=== PATIENT | female | born 1970 ===

== ENCOUNTER 2021-12-17 10:44 | Emergency (ER) | payer SELFPAY ==
[2021-12-17 11:31] LABS: Basophils % (Auto) 0.2 % (0.0-1.8); Eosinophils # (Auto) 0.1 K/mm3 (0.0-0.4); Eosinophils % (Auto) 0.8 % (0.0-4.3); Hematocrit 39.5 % (30.3-42.9); Hemoglobin 13.6 gm/dl (10.1-14.3); Lymphocytes # (Auto) 2.8 K/mm3 (1.2-5.4); Lymphocytes % (Auto) 17.7 % (13.4-35.0); Mean Corpuscular HGB Conc 34 % (30-34); Mean Corpuscular Volume 89 fl (79-97); Monocytes # (Auto) 0.3 K/mm3 (0.0-0.8); Monocytes % (Auto) 2.1 % (0.0-7.3); Platelet Count 192 K/mm3 (140-440); Red Blood Count 4.42 M/mm3 (3.65-5.03); Red Cell Distribution Width 13.3 % (13.2-15.2)
[2021-12-17 11:44] LABS: INR 0.98 (0.87-1.13)
--- NOTE | 2021-12-17 11:44 | XRay Report ---
CHEST 1 VIEW 12/17/2021 11:17 AM INDICATION / CLINICAL INFORMATION: ams, resp depression, chest pain. COMPARISON: None available. FINDINGS: SUPPORT DEVICES: None. HEART / MEDIASTINUM: No significant abnormality. LUNGS / PLEURA: No significant pulmonary or pleural abnormality. No pneumothorax. ADDITIONAL FINDINGS: No significant additional findings. IMPRESSION: 1. No acute findings. Signer Name: Richi Pena MD Signed: 12/17/2021 11:40 AM Workstation Name: [email or web address]
[2021-12-17 11:50] LABS: Partial Thromboplastin Time 30.1 Sec. (24.2-36.6)
[2021-12-17 11:56] LABS: Alanine Aminotransferase 51 units/L (7-56); Albumin 4.7 g/dL (3.9-5); BUN/Creatinine Ratio 12; Blood Urea Nitrogen 13 mg/dL (7-17); Calcium 9.4 mg/dL (8.4-10.2); Hemolysis Index 8
[2021-12-17 12:05] LABS: Free T4 (Free Thyroxine) 1.33 ng/dL (0.76-1.46)
[2021-12-17] MEDS ORDERED: SODIUM CHLORIDE 0.9% 1000 ML 1,000 ML IV ONE (12:49)
--- NOTE | 2021-12-17 12:58 | Cat Scan Report ---
CT head/brain wo con INDICATION / CLINICAL INFORMATION: 51 years Female; ams, resp depression, headache. TECHNIQUE: Routine CT head without contrast. All CT scans at this location are performed using CT dos e reduction for ALARA by means of automated exposure control. COMPARISON: None. FINDINGS: BRAIN / INTRACRANIAL CONTENTS: The brain parenchyma appears to demonstrate appropriate attenuation fo r age. The ventricular system is within normal limits in size and configuration. There is no CT evide nce of acute intracranial hemorrhage or significant mass effect. ORBITS: No significant abnormality of visualized orbits. SINUSES / MASTOIDS: No significant abnormality in the visualized paranasal sinuses or mastoid air robert ls. CRANIOCERVICAL JUNCTION: No significant abnormality. ADDITIONAL FINDINGS: None. IMPRESSION: 1. There is no CT evidence of acute intracranial process. Signer Name: Jad Lilly MD Signed: 12/17/2021 12:54 PM Workstation Name: [id number]
--- NOTE | 2021-12-17 13:03 | Emergency Department Report ---
<DOROTHY BIRD - Last Filed: 12/17/21 16:41> ED Altered Mental Status HPI - General Chief Complaint: Altered Mental Status Stated Complaint: OVERDOSE Time Seen by Provider: 12/17/21 10:57 - Related Data Previous Rx's Medication Instructions Recorded Last Taken Type Nitrofurantoin [place]/M-Cryst 100 mg PO Q12HR 5 Days #10 capsule 12/17/21 Unknown Rx [Macrobid CAP] diphenhydrAMINE [Benadryl CAP] 25 mg PO Q6HR PRN 5 Days #12 12/17/21 Unknown Rx capsule Allergies Allergy/AdvReac Type Severity Reaction Status Date / Time No Known Allergies Allergy Unverified 12/17/21 12:33 ED Past Medical Hx - Medications Home Medications: Home Medications Medication Instructions Recorded Confirmed Last Taken Type Nitrofurantoin [place]/M-Cryst 100 mg PO Q12HR 5 Days #10 capsule 12/17/21 Unknown Rx [Macrobid CAP] diphenhydrAMINE [Benadryl CAP] 25 mg PO Q6HR PRN 5 Days #12 12/17/21 Unknown Rx capsule ED Course - Reevaluation(s) Reevaluation #1: 12/17/21 16:37 I have seen the patient myself and patient AOX4 states she accidentally took Clonidine instead of aspirin. Patient currently denies any other discomfort but only that she may have an allergic reaction as she is having right facial itchy and would like to get some Benadryl. Review of labs shows patient have urinary tract infection; therefore, I will go ahead and treat it. Informed to follow up with PCP within 3 days. Return to ER if any new symptoms or previous symptom returns. 12/17/21 16:41 - Lab Data Result diagrams: 12/17/21 11:04 12/17/21 11:04 ED Disposition Clinical Impression: Accidental overdose, Respiratory depression, Hyperglycemia, Medication side effect Disposition: 01 HOME / SELF CARE / HOMELESS Is pt being admited?: No Does the pt Need Aspirin: No Condition: Stable Instructions: Accidental Drug Poisoning, Adult, Hyperglycemia, [id number] Additional Instructions: Take the medication as prescribed. Follow-up with your doctor or doctor/clinic provided. Return if symptoms worsen as indicated by your discharge instructions. Your blood pressure is normal during your ER stay here. It is unclear if you did take a blood pressure medication prior to arrival. I suggest that you follow-up with your primary care doctor to have your blood pressure and blood song gar checked and to determine if you need medications for high blood pressure and diabetes Prescriptions: diphenhydrAMINE [Benadryl CAP] 25 mg PO Q6HR PRN 5 Days #12 capsule PRN Reason: Itching Nitrofurantoin [place]/M-Cryst [Macrobid CAP] 100 mg PO Q12HR 5 Days #10 capsule Referrals: [facility] [Provider Group] - 3-5 Days BABITA PARR MD [Staff Physician] - 3-5 Days Forms: Work/School Release Form(ED) Time of Disposition: 16:41 <ARYA ANGLIN - Last Filed: 12/18/21 12:03> ED Altered Mental Status HPI - General Source: EMS Mode of arrival: Ambulatory Limitations: Altered Mental Status - History of Present Illness Initial Comments: 51-year-old female past medical history of hypertension (no meds at this time) presents to the hospital with alteration in mental status and respiratory arr est. She was at work and coworkers states she laid her head on a desk and they could not wake her up. Fire department responders found her slumped over in her chair with depressed respirations. She apparently had a period of apnea requiring bagging in 2 minutes of chest compressions were provided because the fire department had difficulty palpating a pulse. No shock advised by the AED. Upon EMS arrival patient was in sinus rhythm with respirations of 6/min. She received Narcan with improvement in mental status. Patient is alert but drowsy. She reports she is had headaches since at least July. She took what she thought was am aspirin for headache but in hindsight things that she took her mother's clonidine instead. She then took a half of Percocet 10 mg for her right knee pain. Patient has been experiencing anterior right knee pain for the last several days performs lifting and squatting at her job (she denies fall). EMS reports a glucose of 396 with no previous history of diabetes. Patient states she has been on hydrochlorothiazide in the past and has not recently been checking her blood pressure. ED Review of Systems ROS: Stated complaint: OVERDOSE Other details as noted in HPI Comment: All other systems reviewed and negative ED Past Medical Hx - Past Medical History Hx Diabetes: Yes - Social History Smoking Status: Unknown if ever smoked ED Physical Exam - General Limitations: Altered Mental Status - Other Other exam information: General: No acute distress Head: Atraumatic Eyes: normal appearance ENT: Moist mucous membranes Neck: Normal appearance, no midline tenderness Chest: Clear to auscultation bilaterally CV: Regular rate and rhythm Abdomen: Soft, normal bowel sounds, nontender, nondistended, no rebound or guarding Back: Normal inspection Extremity: Normal inspection, full range of motion Neuro: Drowsy, oriented x3 no facial asymmetry, speech clear, no gross motor se nsory deficit Psych: Appropriate behavior Skin: No rash ED Course Vital Signs 12/17/21 12/17/21 12/17/21 10:44 12:02 12:03 Temperature 98.9 F Pulse Rate 87 89 Respiratory 18 16 17 Rate Blood Pressure 122/78 122/78 Blood Pressure [Right] O2 Sat by Pulse 96 94 93 Oximetry 12/17/21 12/17/21 12/17/21 12:05 12:57 12:59 Temperature Pulse Rate 86 73 71 Respiratory 14 16 12 Rate Blood Pressure 122/78 130/89 130/89 Blood Pressure [Right] O2 Sat by Pulse 96 98 95 Oximetry 12/17/21 12/17/21 12/17/21 13:01 13:03 13:05 Temperature Pulse Rate 71 70 73 Respiratory 10 L 12 13 Rate Blood Pressure 130/89 122/78 122/78 Blood Pressure [Right] O2 Sat by Pulse 97 98 98 Oximetry 12/17/21 12/17/21 12/17/21 13:09 13:11 13:13 Temperature Pulse Rate 76 72 68 Respiratory 15 12 13 Rate Blood Pressure 122/78 122/78 122/78 Blood Pressure [Right] O2 Sat by Pulse 94 97 93 Oximetry 12/17/21 12/17/21 12/17/21 13:15 13:17 13:19 Temperature Pulse Rate 71 72 75 Respiratory 14 14 13 Rate Blood Pressure 122/78 122/78 122/78 Blood Pressure [Right] O2 Sat by Pulse 94 96 97 Oximetry 12/17/21 12/17/21 12/17/21 13:21 13:23 13:25 Temperature Pulse Rate 72 71 69 Respiratory 13 13 13 Rate Blood Pressure 122/78 122/78 122/78 Blood Pressure [Right] O2 Sat by Pulse 96 95 94 Oximetry 12/17/21 12/17/2122 13:27 13:29 13:31 Temperature Pulse Rate 69 70 75 Respiratory 13 12 17 Rate Blood Pressure 122/78 122/78 122/78 Blood Pressure [Right] O2 Sat by Pulse 98 93 92 Oximetry 12/17/21 12/17/21 12/17/21 13:33 13:35 13:37 Temperature Pulse Rate 70 76 74 Respiratory 12 14 14 Rate Blood Pressure 122/78 122/78 122/78 Blood Pressure [Right] O2 Sat by Pulse 92 97 99 Oximetry 12/17/21 12/17/21 12/17/21 13:39 13:41 13:43 Temperature Pulse Rate 79 78 79 Respiratory 13 17 14 Rate Blood Pressure 122/78 122/78 122/78 Blood Pressure [Right] O2 Sat by Pulse 97 97 100 Oximetry 12/17/21 12/17/21 12/17/21 13:45 13:47 13:49 Temperature Pulse Rate 72 68 78 Respiratory 13 17 14 Rate Blood Pressure 122/78 122/78 122/78 Blood Pressure [Right] O2 Sat by Pulse 98 99 97 Oximetry 12/17/21 12/17/21 12/17/21 13:51 13:53 13:55 Temperature Pulse Rate 69 67 65 Respiratory 10 L 11 L 15 Rate Blood Pressure 122/78 130/83 130/83 Blood Pressure [Right] O2 Sat by Pulse 98 99 97 Oximetry 12/17/21 12/17/21 12/17/21 13:57 13:59 14:01 Temperature Pulse Rate 60 61 62 Respiratory 12 13 15 Rate Blood Pressure 130/83 130/83 130/83 Blood Pressure [Right] O2 Sat by Pulse 96 98 98 Oximetry 12/17/21 12/17/21 12/17/21 14:03 14:05 14:07 Temperature Pulse Rate 69 96 H 72 Respiratory 13 10 L 16 Rate Blood Pressure 130/83 130/83 130/83 Blood Pressure [Right] O2 Sat by Pulse 98 97 92 Oximetry 12/17/21 12/17/21 12/17/21 14:09 14:11 14:13 Temperature Pulse Rate 73 68 63 Respiratory 16 15 12 Rate Blood Pressure 130/83 130/83 130/83 Blood Pressure [Right] O2 Sat by Pulse 93 95 96 Oximetry 12/17/21 12/17/21 12/17/21 14:15 14:17 14:19 Temperature Pulse Rate 66 68 71 Respiratory 17 14 15 Rate Blood Pressure 130/83 130/83 130/83 Blood Pressure [Right] O2 Sat by Pulse 96 95 92 Oximetry 12/17/21 12/17/21 12/17/21 14:21 14:23 14:25 Temperature Pulse Rate 70 70 72 Respiratory 13 15 14 Rate Blood Pressure 130/83 130/83 130/83 Blood Pressure [Right] O2 Sat by Pulse 94 94 94 Oximetry 12/17/21 12/17/21 12/17/21 14:27 14:29 14:31 Temperature Pulse Rate 72 75 73 Respiratory 13 13 14 Rate Blood Pressure 130/83 130/83 130/83 Blood Pressure [Right] O2 Sat by Pulse 95 94 91 Oximetry 12/17/21 12/17/21 12/17/21 14:33 14:47 17:44 Temperature Pulse Rate 92 H 72 Respiratory 14 20 Rate Blood Pressure 130/83 130/83 Blood Pressure 130/87 [Right] O2 Sat by Pulse 96 99 Oximetry - Reevaluation(s) Reevaluation #1: 12/17/21 14:00 Patient is more alert and further able to clarify what she took. She denied taking losartan and then states that she might of taken clonidine instead of aspirin and admits to taking Percocet - Lab Data Result diagrams: 12/17/21 11:04 12/17/21 11:04 Lab Results 12/17/21 12/17/21 12/17/21 Range/Units 11:04 11:04 11:04 WBC 16.1 H (4.5-11.0) K/mm3 RBC 4.42 (3.65-5.03) M/mm3 Hgb 13.6 (10.1-14.3) gm/dl Hct 39.5 (30.3-42.9) % MCV 89 (79-97) fl MCH 31 (28-32) pg MCHC 34 (30-34) % RDW 13.3 (13.2-15.2) % Plt Count 192 (140-440) K/mm3 Lymph % (Auto) 17.7 (13.4-35.0) % [place] % (Auto) 2.1 (0.0-7.3) % Eos % (Auto) 0.8 (0.0-4.3) % Baso % (Auto) 0.2 (0.0-1.8) % Lymph # (Auto) 2.8 (1.2-5.4) K/mm3 [place] # (Auto) 0.3 (0.0-0.8) K/mm3 Eos # (Auto) 0.1 (0.0-0.4) K/mm3 Baso # (Auto) 0.0 (0.0-0.1) K/mm3 Seg Neutrophils % 79.2 H (40.0-70.0) % Seg Neutrophils # 12.8 H (1.8-7.7) K/mm3 PT 14.1 (12.2-14.9) Sec. INR 0.98 (0.87-1.13) APTT 30.1 (24.2-36.6) Sec. Sodium 137 (137-145) mmol/L Potassium 4.3 (3.6-5.0) mmol/L Chloride 101.1 (98-107) mmol/L Carbon Dioxide 23 (22-30) mmol/L Anion Gap 17 mmol/L BUN 13 (7-17) mg/dL Creatinine 1.1 (0.6-1.2) mg/dL Estimated GFR 52 ml/min BUN/Creatinine Ratio 12 % Glucose 323 H (65-100) mg/dL POC Glucose (70-105) mg/dL Lactic Acid (0.7-2.0) mmol/L Calcium 9.4 (8.4-10.2) mg/dL Magnesium (1.7-2.3) mg/dL Total Bilirubin 0.50 (0.1-1.2) mg/dL AST 60 H (5-40) units/L ALT 51 (7-56) units/L Alkaline Phosphatase 98 (35-129) units/L Ammonia (25-60) umol/L Troponin T < 0.010 (0.00-0.029) ng/mL Total Protein 7.5 (6.3-8.2) g/dL Albumin 4.7 (3.9-5) g/dL Albumin/Globulin Ratio 1.7 % TSH (0.270-4.200) mlU/mL Free T4 (0.76-1.46) ng/dL HCG, Qual (Negative) Urine Color (Yellow) Urine Turbidity (Clear) Urine pH (5.0-7.0) Ur Specific [place] (1.003-1.030) Urine Protein (Negative) mg/dL Urine Glucose (UA) (Negative) mg/dL Urine Ketones (Negative) mg/dL Urine Blood (Negative) Urine Nitrite (Negative) Ur Reducing Substances Urine Bilirubin (Negative) Urine Ictotest Urine Urobilinogen (<2.0) mg/dL Ur Leukocyte Esterase (Negative) Urine WBC (Auto) (0.0-6.0) /HPF Urine RBC (Auto) (0.0-6.0) /HPF U Epithel Cells (Auto) (0-13.0) /HPF Urine Mucus /HPF Salicylates (2.8-20.0) mg/dL Urine Opiates Screen Urine Methadone Screen Acetaminophen (10.0-30.0) ug/mL Ur Barbiturates Screen Ur Phencyclidine Scrn Ur Amphetamines Screen U Benzodiazepines Scrn Urine Cocaine Screen U Marijuana (THC) Screen Drugs of Abuse Note Plasma/Serum Alcohol (0-0.07) % 12/17/21 12/17/21 12/17/21 Range/Units 11:04 11:04 11:04 WBC (4.5-11.0) K/mm3 RBC (3.65-5.03) M/mm3 Hgb (10.1-14.3) gm/dl Hct (30.3-42.9) % MCV (79-97) fl MCH (28-32) pg MCHC (30-34) % RDW (13.2-15.2) % Plt Count (140-440) K/mm3 Lymph % (Auto) (13.4-35.0) % [place] % (Auto) (0.0-7.3) % Eos % (Auto) (0.0-4.3) % Baso % (Auto) (0.0-1.8) % Lymph # (Auto) (1.2-5.4) K/mm3 [place] # (Auto) (0.0-0.8) K/mm3 Eos # (Auto) (0.0-0.4) K/mm3 Baso # (Auto) (0.0-0.1) K/mm3 Seg Neutrophils % (40.0-70.0) % Seg Neutrophils # (1.8-7.7) K/mm3 PT (12.2-14.9) Sec. INR (0.87-1.13) APTT (24.2-36.6) Sec. Sodium (137-145) mmol/L Potassium (3.6-5.0) mmol/L Chloride (98-107) mmol/L Carbon Dioxide (22-30) mmol/L Anion Gap mmol/L BUN (7-17) mg/dL Creatinine (0.6-1.2) mg/dL Estimated GFR ml/min BUN/Creatinine Ratio % Glucose (65-100) mg/dL POC Glucose (70-105) mg/dL Lactic Acid 1.70 (0.7-2.0) mmol/L Calcium (8.4-10.2) mg/dL Magnesium (1.7-2.3) mg/dL Total Bilirubin (0.1-1.2) mg/dL AST (5-40) units/L ALT (7-56) units/L Alkaline Phosphatase (35-129) units/L Ammonia 33.0 (25-60) umol/L Troponin T (0.00-0.029) ng/mL Total Protein (6.3-8.2) g/dL Albumin (3.9-5) g/dL Albumin/Globulin Ratio % TSH (0.270-4.200) mlU/mL Free T4 (0.76-1.46) ng/dL HCG, Qual (Negative) Urine Color (Yellow) Urine Turbidity (Clear) Urine pH (5.0-7.0) Ur Specific [place] (1.003-1.030) Urine Protein (Negative) mg/dL Urine Glucose (UA) (Negative) mg/dL Urine Ketones (Negative) mg/dL Urine Blood (Negative) Urine Nitrite (Negative) Ur Reducing Substances Urine Bilirubin (Negative) Urine Ictotest Urine Urobilinogen (<2.0) mg/dL Ur Leukocyte Esterase (Negative) Urine WBC (Auto) (0.0-6.0) /HPF Urine RBC (Auto) (0.0-6.0) /HPF U Epithel Cells (Auto) (0-13.0) /HPF Urine Mucus /HPF Salicylates < 0.3 L (2.8-20.0) mg/dL Urine Opiates Screen Urine Methadone Screen Acetaminophen (10.0-30.0) ug/mL Ur Barbiturates Screen Ur Phencyclidine Scrn Ur Amphetamines Screen U Benzodiazepines Scrn Urine Cocaine Screen U Marijuana (THC) Screen Drugs of Abuse Note Plasma/Serum Alcohol (0-0.07) % 12/17/21 12/17/21 12/17/21 Range/Units 11:04 11:04 11:04 WBC (4.5-11.0) K/mm3 RBC (3.65-5.03) M/mm3 Hgb (10.1-14.3) gm/dl Hct (30.3-42.9) % MCV (79-97) fl MCH (28-32) pg MCHC (30-34) % RDW (13.2-15.2) % Plt Count (140-440) K/mm3 Lymph % (Auto) (13.4-35.0) % [place] % (Auto) (0.0-7.3) % Eos % (Auto) (0.0-4.3) % Baso % (Auto) (0.0-1.8) % Lymph # (Auto) (1.2-5.4) K/mm3 [place] # (Auto) (0.0-0.8) K/mm3 Eos # (Auto) (0.0-0.4) K/mm3 Baso # (Auto) (0.0-0.1) K/mm3 Seg Neutrophils % (40.0-70.0) % Seg Neutrophils # (1.8-7.7) K/mm3 PT (12.2-14.9) Sec. INR (0.87-1.13) APTT (24.2-36.6) Sec. Sodium (137-145) mmol/L Potassium (3.6-5.0) mmol/L Chloride (98-107) mmol/L Carbon Dioxide (22-30) mmol/L Anion Gap mmol/L BUN (7-17) mg/dL Creatinine (0.6-1.2) mg/dL Estimated GFR ml/min BUN/Creatinine Ratio % Glucose (65-100) mg/dL POC Glucose (70-105) mg/dL Lactic Acid (0.7-2.0) mmol/L Calcium (8.4-10.2) mg/dL Magnesium 2.10 (1.7-2.3) mg/dL Total Bilirubin (0.1-1.2) mg/dL AST (5-40) units/L ALT (7-56) units/L Alkaline Phosphatase (35-129) units/L Ammonia (25-60) umol/L Troponin T (0.00-0.029) ng/mL Total Protein (6.3-8.2) g/dL Albumin (3.9-5) g/dL Albumin/Globulin Ratio % TSH (0.270-4.200) mlU/mL Free T4 (0.76-1.46) ng/dL HCG, Qual (Negative) Urine Color (Yellow) Urine Turbidity (Clear) Urine pH (5.0-7.0) Ur Specific [place] (1.003-1.030) Urine Protein (Negative) mg/dL Urine Glucose (UA) (Negative) mg/dL Urine Ketones (Negative) mg/dL Urine Blood (Negative) Urine Nitrite (Negative) Ur Reducing Substances Urine Bilirubin (Negative) Urine Ictotest Urine Urobilinogen (<2.0) mg/dL Ur Leukocyte Esterase (Negative) Urine WBC (Auto) (0.0-6.0) /HPF Urine RBC (Auto) (0.0-6.0) /HPF U Epithel Cells (Auto) (0-13.0) /HPF Urine Mucus /HPF Salicylates (2.8-20.0) mg/dL Urine Opiates Screen Urine Methadone Screen Acetaminophen 5.0 L (10.0-30.0) ug/mL Ur Barbiturates Screen Ur Phencyclidine Scrn Ur Amphetamines Screen U Benzodiazepines Scrn Urine Cocaine Screen U Marijuana (THC) Screen Drugs of Abuse Note Plasma/Serum Alcohol < 0.01 (0-0.07) % 12/17/21 12/17/21 12/17/21 Range/Units 11:04 11:04 12:04 WBC (4.5-11.0) K/mm3 RBC (3.65-5.03) M/mm3 Hgb (10.1-14.3) gm/dl Hct (30.3-42.9) % MCV (79-97) fl MCH (28-32) pg MCHC (30-34) % RDW (13.2-15.2) % Plt Count (140-440) K/mm3 Lymph % (Auto) (13.4-35.0) % [place] % (Auto) (0.0-7.3) % Eos % (Auto) (0.0-4.3) % Baso % (Auto) (0.0-1.8) % Lymph # (Auto) (1.2-5.4) K/mm3 [place] # (Auto) (0.0-0.8) K/mm3 Eos # (Auto) (0.0-0.4) K/mm3 Baso # (Auto) (0.0-0.1) K/mm3 Seg Neutrophils % (40.0-70.0) % Seg Neutrophils # (1.8-7.7) K/mm3 PT (12.2-14.9) Sec. INR (0.87-1.13) APTT (24.2-36.6) Sec. Sodium (137-145) mmol/L Potassium (3.6-5.0) mmol/L Chloride (98-107) mmol/L Carbon Dioxide (22-30) mmol/L Anion Gap mmol/L BUN (7-17) mg/dL Creatinine (0.6-1.2) mg/dL Estimated GFR ml/min BUN/Creatinine Ratio % Glucose (65-100) mg/dL POC Glucose (70-105) mg/dL Lactic Acid (0.7-2.0) mmol/L Calcium (8.4-10.2) mg/dL Magnesium (1.7-2.3) mg/dL Total Bilirubin (0.1-1.2) mg/dL AST (5-40) units/L ALT (7-56) units/L Alkaline Phosphatase (35-129) units/L Ammonia (25-60) umol/L Troponin T (0.00-0.029) ng/mL Total Protein (6.3-8.2) g/dL Albumin (3.9-5) g/dL Albumin/Globulin Ratio % TSH 2.460 (0.270-4.200) mlU/mL Free T4 1.33 (0.76-1.46) ng/dL HCG, Qual Negative (Negative) Urine Color Yellow (Yellow) Urine Turbidity Clear (Clear) Urine pH 6.0 (5.0-7.0) Ur Specific [place] 1.015 (1.003-1.030) Urine Protein <15 mg/dl (Negative) mg/dL Urine Glucose (UA) 500 (Negative) mg/dL Urine Ketones 25 (Negative) mg/dL Urine Blood Negative (Negative) Urine Nitrite Negative (Negative) Ur Reducing Substances Not Reportable Urine Bilirubin Negative (Negative) Urine Ictotest Not Reportable Urine Urobilinogen 0.0 (<2.0) mg/dL Ur Leukocyte Esterase 1+ (Negative) Urine WBC (Auto) 15.0 H (0.0-6.0) /HPF Urine RBC (Auto) 22.0 (0.0-6.0) /HPF U Epithel Cells (Auto) 26.0 H (0-13.0) /HPF Urine Mucus Few /HPF Salicylates (2.8-20.0) mg/dL Urine Opiates Screen Urine Methadone Screen Acetaminophen (10.0-30.0) ug/mL Ur Barbiturates Screen Ur Phencyclidine Scrn Ur Amphetamines Screen U Benzodiazepines Scrn Urine Cocaine Screen U Marijuana (THC) Screen Drugs of Abuse Note Plasma/Serum Alcohol (0-0.07) % 12/17/21 12/17/21 Range/Units 12:04 14:43 WBC (4.5-11.0) K/mm3 RBC (3.65-5.03) M/mm3 Hgb (10.1-14.3) gm/dl Hct (30.3-42.9) % MCV (79-97) fl MCH (28-32) pg MCHC (30-34) % RDW (13.2-15.2) % Plt Count (140-440) K/mm3 Lymph % (Auto) (13.4-35.0) % [place] % (Auto) (0.0-7.3) % Eos % (Auto) (0.0-4.3) % Baso % (Auto) (0.0-1.8) % Lymph # (Auto) (1.2-5.4) K/mm3 [place] # (Auto) (0.0-0.8) K/mm3 Eos # (Auto) (0.0-0.4) K/mm3 Baso # (Auto) (0.0-0.1) K/mm3 Seg Neutrophils % (40.0-70.0) % Seg Neutrophils # (1.8-7.7) K/mm3 PT (12.2-14.9) Sec. INR (0.87-1.13) APTT (24.2-36.6) Sec. Sodium (137-145) mmol/L Potassium (3.6-5.0) mmol/L Chloride (98-107) mmol/L Carbon Dioxide (22-30) mmol/L Anion Gap mmol/L BUN (7-17) mg/dL Creatinine (0.6-1.2) mg/dL Estimated GFR ml/min BUN/Creatinine Ratio % Glucose (65-100) mg/dL POC Glucose 75 (70-105) mg/dL Lactic Acid (0.7-2.0) mmol/L Calcium (8.4-10.2) mg/dL Magnesium (1.7-2.3) mg/dL Total Bilirubin (0.1-1.2) mg/dL AST (5-40) units/L ALT (7-56) units/L Alkaline Phosphatase (35-129) units/L Ammonia (25-60) umol/L Troponin T (0.00-0.029) ng/mL Total Protein (6.3-8.2) g/dL Albumin (3.9-5) g/dL Albumin/Globulin Ratio % TSH (0.270-4.200) mlU/mL Free T4 (0.76-1.46) ng/dL HCG, Qual (Negative) Urine Color (Yellow) Urine Turbidity (Clear) Urine pH (5.0-7.0) Ur Specific [place] (1.003-1.030) Urine Protein (Negative) mg/dL Urine Glucose (UA) (Negative) mg/dL Urine Ketones (Negative) mg/dL Urine Blood (Negative) Urine Nitrite (Negative) Ur Reducing Substances Urine Bilirubin (Negative) Urine Ictotest Urine Urobilinogen (<2.0) mg/dL Ur Leukocyte Esterase (Negative) Urine WBC (Auto) (0.0-6.0) /HPF Urine RBC (Auto) (0.0-6.0) /HPF U Epithel Cells (Auto) (0-13.0) /HPF Urine Mucus /HPF Salicylates (2.8-20.0) mg/dL Urine Opiates Screen Negative Urine Methadone Screen Negative Acetaminophen (10.0-30.0) ug/mL Ur Barbiturates Screen Negative Ur Phencyclidine Scrn Negative Ur Amphetamines Screen Negative U Benzodiazepines Scrn Negative Urine Cocaine Screen Negative U Marijuana (THC) Screen Positive Drugs of Abuse Note Disclamer Plasma/Serum Alcohol (0-0.07) % - EKG Data -: EKG Interpreted by Me (Right bundle branch block) EKG shows normal: sinus rhythm, ST-T waves (No STEMI) Rate: tachycardia (100) - Radiology Data Radiology results: report reviewed CHEST 1 VIEW 12/17/2021 11:17 AM INDICATION / CLINICAL INFORMATION: ams, resp depression, chest pain. COMPARISON: None available. FINDINGS: SUPPORT DEVICES: None. HEART / MEDIASTINUM: No significant abnormality. LUNGS / PLEURA: No significant pulmonary or pleural abnormality. No pneumothorax. ADDITIONAL FINDINGS: No significant additional findings. IMPRESSION: 1. No acute findings. CT head/brain wo con INDICATION / CLINICAL INFORMATION: 51 years Female; ams, resp depression, headache. TECHNIQUE: Routine CT head without contrast. All CT scans at this location are performed using CT dose reduction for ALARA by means of automated exposure control. COMPARISON: None. FINDINGS: BRAIN / INTRACRANIAL CONTENTS: The brain parenchyma appears to demonstrate appropriate attenuation for age. The ventricular system is within normal limits in size and configuration. There is no CT evidence of acute intracranial hemorrhage or significant mass effect. ORBITS: No significant abnormality of visualized orbits. SINUSES / MASTOIDS: No significant abnormality in the visualized paranasal sinuses or mastoid air cells. CRANIOCERVICAL JUNCTION: No significant abnormality. ADDITIONAL FINDINGS: None. IMPRESSION: 1. There is no CT evidence of acute intracranial process. - Medical Decision Making 51-year-old female presents to the hospital with oversedation and respiratory depression responsive to Narcan. It is likely patient took a dose of clonidine in addition to the Percocet causing oversedation. Patient is alert and at baseline during ED stay. Labs show leukocytosis and hyperglycemia without other findings suggestive of DKA. CT head, EKG, and chest x-ray were all unremarkable. UA/UDS collection pending Patient signed out to Dr. Bird to follow Patient may be discharged home if back to baseline Patient is hyperglycemia resolved with minimum intervention. Patient did receive some p.o. and IV fluids and repeat glucose was 76. Hyperglycemic could be secondary to stress reaction and therefore she will not be started on any medication. Critical Care Time: No Critical care attestation.: If time is entered above; I have spent that time in minutes in the direct care of this critically ill patient, excluding procedure time. ED Disposition Is pt being admited?: No Does the pt Need Aspirin: No
[2021-12-17 15:13] LABS: Amphetamine Screen,Urine Negative; Benzodiazepines Screen,Urine Negative; Cocaine Screen,Urine Negative; Methadone Screen,Urine Negative; Opiate Screen,Urine Negative
[2021-12-17 15:26] LABS: Cannabinoid Screen,Urine Positive
[2021-12-17 15:28] LABS: Mucus,Urine FEW /HPF
[2021-12-17 15:34] LABS: Bilirubin,Urine Negative (Negative); Color,Urine Yellow (Yellow)
[2021-12-17 15:35] LABS: Blood,Urine Negative (Negative); Protein,Urine <15 mg/dL mg/dL (Negative)
[2021-12-17 17:46] VITALS: BP 130/87
--- NOTE | 2021-12-18 13:47 | Electrocardiograph Report ---
[facility] Test Date: 2021-12-17 Test Time: 10:55:58 Pat Name: VICKIE BRADFORD Department: Room: Gender: F Sign Builder: NURSE : 1970 Requested By: ARYA ANGLIN Order Number: [id number] Reading MD: Ally Richey Measurements Intervals [place] Rate: 100 P: 10 ID: [id number] QRS: 36 QRSD: 123 T: -2 QT: 389 QTc: 501 Interpretive Statements Sinus tachycardia IVCD, consider RBBB Anteroseptal infarct, age indeterminate No previous ECG available for comparison Electronically Signed On 12-18-2021 13:47:16 EDT by Ally Richey
== END 2021-12-17 17:46 | disposition home or self-care (01) ==
LOC: ED 10:44
DX: T50.901A Poisoning by unspecified drugs, medicaments and biological substances, accidental (unintentional), initial encounter (principal); R06.03 Acute respiratory distress; E11.65 Type 2 diabetes mellitus with hyperglycemia; Y92.89 Other specified places as the place of occurrence of the external cause
CPT/HCPCS: 36415; 70450; 71045; 80053; 80307; 80320; 81001; 82140; 82962; 83735; 84439; 84443; 84484; 84703; 85025; 85610; 85730; 87086; 93005; 96360; 99285; G0480